=== PATIENT | female | born 1985 | race Caucasian/White ===

== ENCOUNTER 2017-10-28 05:23 | Outpatient (CLI) | payer BC ==
[~2017-10-28] VITALS: Ht 157.5 cm; Wt 72.7 kg
[2017-10-28 05:52] VITALS: BP 109/73; PULSE 100; TEMP 98.7
[2017-10-28] MEDS ORDERED: PRENATAL MVI (05:59)
[2017-10-28 07:15] VITALS: BP 109/66; PULSE 75
[2017-10-29] MEDS ORDERED: IBU600 MG PO (08:50)
== END 2017-10-28 08:35 | disposition home or self-care (01) ==
LOC: LDRO 05:23
DX: O62.9 Abnormality of forces of labor, unspecified (principal); Z3A.40 40 weeks gestation of pregnancy

== ENCOUNTER 2017-10-28 15:53 | Inpatient (IN) | payer BC ==
[2017-10-28] VITALS (26 sets, daily range): BP systolic 89–120; BP diastolic 46–71; PULSE 70–121; TEMP 97.8–99.6
[~2017-10-28] VITALS: Ht 157.5 cm; Wt 72.7 kg
[~2017-10-28 15:53] MED LIST: PRENATAL MVI
[2017-10-28 17:19] LABS: BASO % 0.2 % (0.0-2.0); EOS % 0.2 % (0-4.0); GRAN # 10.2 (1.4-6.5); GRAN % 78.8 % (42.2-75.2); LYMPH # 1.7 (1.2-3.4); MEAN CELL VOLUME 87 fl (80.0-100.0); MEAN CORPUSCULAR HEMOGLOBIN 30 pg (27.0-31.0); MEAN CORPUSCULAR HGB CONC 35 g/dl (33.0-37.0); MEAN PLATELET VOLUME 10.3 fl (7.4-10.4); MONO % 7.3 % (1.7-9.3); PLATELET COUNT 208 K/mm3 (130-400); RED BLOOD COUNT 3.95 M/mm3 (4.10-5.30)
[2017-10-28 17:20] LABS: HEMATOCRIT 34.4 % (37.0-47.0)
[2017-10-29 00:11] VITALS: BP 101/59; PULSE 77
[2017-10-29 01:00] VITALS: BP 113/64; PULSE 85
[2017-10-29 02:00] VITALS: BP 96/46; PULSE 81
[2017-10-29 04:15] VITALS: BP 104/65; PULSE 56
[2017-10-29 07:20] VITALS: BP 96/60; PULSE 85; TEMP 97.6
[2017-10-29] MEDS ORDERED: IBU600 MG PO (08:50)
[2017-10-29 20:00] VITALS: BP 90/56; PULSE 69; TEMP 98.2
[2017-10-30 07:50] VITALS: BP 98/55; PULSE 64; TEMP 97.8
[2017-10-30] MEDS ORDERED: NEWMANS TOP (09:14)
== END 2017-10-30 11:15 | disposition home or self-care (01) | DRG 775 ==
LOC: LDRO 15:53 → LDR 16:00 → OB 10-29 01:00
PROVIDERS: Obstetrics & Gynecology
PROC: 10E0XZZ Delivery of Products of Conception, External Approach (ICD-10-PCS; principal; 2017-10-28)
PROC: 0KQM0ZZ Repair Perineum Muscle, Open Approach (ICD-10-PCS; 2017-10-28)
DX: O70.1 Second degree perineal laceration during delivery (principal); Z37.0 Single live birth; Z3A.40 40 weeks gestation of pregnancy; O99.02 Anemia complicating childbirth
CPT/HCPCS: J1200; J2540; J2590; J7120

== ENCOUNTER → 2017-11-03 | Outpatient (CLI) | payer BC ==
[~2017-11-03] MED LIST changes: +IBU600 MG PO; +NEWMANS TOP
== END ==
LOC: LAC 14:40
DX: Z39.1 Encounter for care and examination of lactating mother (principal); Z71.89 Other specified counseling

== ENCOUNTER → 2017-11-10 | Outpatient (CLI) | payer BC | LOC: LAC 14:48 | DX: Z39.1 Encounter for care and examination of lactating mother (principal); Z71.89 Other specified counseling ==

== ENCOUNTER → 2019-01-06 | Outpatient (CLI) | payer BC ==
[2019-01-06 18:12] LABS: COLLECTION METHOD CLEAN CATCH
[2019-01-06 18:39] LABS: MUCOUS Present /lpf; PH 5 (5-8); SQUAMOUS EPITHELIAL 0-2 /hpf; URINE APPEARANCE Clear; URINE BACTERIA None Seen /hpf; URINE BILIRUBIN Negative (NEGATIVE); URINE BLOOD Negative (NEGATIVE); URINE COLOR Yellow; URINE GLUCOSE Negative (NEGATIVE); URINE KETONE Negative (NEGATIVE); URINE LEUKOCYTE ESTERASE Negative (NEGATIVE); URINE NITRATE Negative (NEGATIVE); URINE PROTEIN(semi-quant) Negative (NEGATIVE); URINE RBC 0-2 /hpf; URINE UROBILINOGEN Negative (NEGATIVE)
== END ==
LOC: COL.LAB 17:35
PROVIDERS: Nurse Practitioner Family
DX: Z01.89 Encounter for other specified special examinations (principal)

== ENCOUNTER 2019-04-17 18:18 | Inpatient (IN) | payer BC ==
[~2019-04-17] VITALS: Ht 162.6 cm; Wt 69.5 kg
[2019-04-17] VITALS (9 sets, daily range): BP systolic 92–137; BP diastolic 50–70; PULSE 67–97; TEMP 97.9
[2019-04-17] MEDS ORDERED: NATURAL IRON65 MG PO (19:36)
--- NOTE | 2019-04-17 21:30 | NUR ---
Report received and care assumed from KATELYN Munroe.
--- NOTE | 2019-04-17 21:55 | NUR ---
2154- Britney, INSURANCE CHECKER at the bedside for epidural placement. Pt sittin up on the edge of the bed. SPO2 monitor started. 2203- Test dose done per Britney. See anesthesia record for details. 2207- Pt repositioned supine with left wedge in bed. EFM and toco monitors adjusted.
[2019-04-17 22:06] LABS: BASO % 0.3 % (0.0-2.0); EOS # 0.1 (0.0-0.7); EOS % 0.5 % (0-4.0); GRAN # 7.8 (1.4-6.5); GRAN % 69.1 % (42.2-75.2); HEMOGLOBIN 10.7 g/dl (12.5-16.0); LYMPH # 2.5 (1.2-3.4); LYMPH % 22.2 % (20.0-51.0); MEAN CELL VOLUME 89 fl (80.0-100.0); MEAN CORPUSCULAR HEMOGLOBIN 30 pg (27.0-31.0); MEAN CORPUSCULAR HGB CONC 34 g/dl (33.0-37.0); MEAN PLATELET VOLUME 10.1 fl (7.4-10.4); MONO # 0.8 (0.1-0.6); MONO % 7.1 % (1.7-9.3); PLATELET COUNT 231 K/mm3 (130-400); RED BLOOD COUNT 3.57 M/mm3 (4.10-5.30); REDCELL DISTRIBUTION WIDTH-CV 13.6 % (11.5-14.5)
[2019-04-17 22:18] LABS: HEMATOCRIT 31.6 % (37.0-47.0)
--- NOTE | 2019-04-17 23:27 | NUR ---
Dr. Atwood on the unit. Update given with SVE, ctx pattern and FHR tracing reviewed. No new orders at this time.
[2019-04-18] VITALS (35 sets, daily range): BP systolic 84–121; BP diastolic 47–78; PULSE 72–125; TEMP 97.9–98.4
--- NOTE | 2019-04-18 01:00 | NUR ---
Contractions not tracing. [place] monitor adjusted.
--- NOTE | 2019-04-18 02:00 | NUR ---
Contractions not tracing. [place] monitor adjusted.
--- NOTE | 2019-04-18 04:00 | NUR ---
Downtime charting done 04/18/19 [id number]. See chart for L&D flow chart for details.
--- NOTE | 2019-04-18 05:50 | NUR ---
Dr. Atwood on the unit. Update given. FHR tracing and ctx pattern reviewed. No new orders at this time.
--- NOTE | 2019-04-18 06:45 | NUR ---
SVE-7-8/85/-1 and patient comfortable at this time and updated on plan of care. Jacob Su RN from [facility] following and checking cervix. Patient okay with RN to check cervix. Dr. Montiel called and notified, see physician notification-orders to start pitocin at this time. Pitocin protocol gone over with patient and patient agrees with plan and pitocin started at 2mU per protocol. 0735: Dr. Montiel at bedside to assess patient and FHR strip. 0738: SVE per physician-10/100 and AROM with clear fluid noted at this time. Difficulty tracing FHR and this RN adjusting monitor. Order to begin pusing and will be back to assess progress. Pushing instruction gone over. 0754: Patient begins pushing with contractions and tolerates well. FHR baseline 135 bpm and early/variable noted with each push/contraction. 0803: Bah catheter removed and patient tolerates well. Patient continues to push. 0807: called and notified that he is needed for delivery. FHR baseline 135-140bpm and decreases to 115-120bmp 0810: Dr Montiel at bedside 0813: Patient begins to push. 0814: Spontaneous vaginal delivery of head followed by body bulbed syringed, and to patient abdomen. Terrance ZEPEDA assumes care of infant. Cord clamped by Dr. Montiel and cut by FOB. 0817: Spontaneous delivery of placenta and pitocin bolus started per protocol. Fundal Massage done/firm/bleeding WNL. begins to repair laceration. 0825: Patient repositioned and ice pack to perineum. Plan of care discussed.
--- NOTE | 2019-04-18 11:40 | NUR ---
Patient dangles feet and sitting on edge of bed. Epidural catheter removed at this time and patient tolerates well. Patient ambulates to bathroom with standby assist x2. Voids, pericare done, new gown/pad/underwear on. Patient to new room via wheelchair and oriented to room. Plan of care discussed. David gone over.
[2019-04-19 00:15] VITALS: BP 97/65; PULSE 76; TEMP 97.8
[2019-04-19 04:05] VITALS: BP 97/52; PULSE 74; TEMP 98.1
--- NOTE | 2019-04-19 06:20 | NUR ---
REPORT RECEIVED FROM TYREE COLLINS RN CARE TAKEN OVER BY THIS RN.
[2019-04-19 07:50] VITALS: BP 101/63; PULSE 78; TEMP 97.7
[2019-04-19] MEDS ORDERED: MOTRIN 800800 MG/TAB PO (07:53)
--- NOTE | 2019-04-19 10:21 | NUR ---
Initial visit; Parents thanked Recreation Programmer for offering congratulations and God's blessings for the of their daughter. Recreation Programmer thanked family for choosing [facility].
== END 2019-04-19 12:25 | disposition home or self-care (01) | DRG 807 ==
LOC: LDRO 18:18 → LDR 19:24 → LDRO 21:07 → LDR 21:08 → OB 04-18 12:29
PROVIDERS: Obstetrics & Gynecology; ADMIT Obstetrics & Gynecology
PROC: 10E0XZZ Delivery of Products of Conception, External Approach (ICD-10-PCS; principal; 2019-04-18)
PROC: 0KQM0ZZ Repair Perineum Muscle, Open Approach (ICD-10-PCS; 2019-04-18)
DX: O99.824 Streptococcus B carrier state complicating childbirth (principal); Z37.0 Single live birth; O70.1 Second degree perineal laceration during delivery; Z3A.38 38 weeks gestation of pregnancy
CPT/HCPCS: J2405; J2540; J2590; J7120

== ENCOUNTER → 2021-11-11 | Outpatient (CLI) | payer BC ==
[~2021-11-11] MED LIST changes: +MOTRIN 800800 MG/TAB PO; +NATURAL IRON65 MG PO
== END ==
LOC: MC.RAD 13:54
DX: N63.11 Unspecified lump in the right breast, upper outer quadrant (principal); N63.12 Unspecified lump in the right breast, upper inner quadrant